=== PATIENT | female | born 1985 | race Two or more races ===

== ENCOUNTER 2016-08-27 20:38 | Emergency (ER) | payer OTHER ==
[~2016-08-27] VITALS: Ht 160 cm; Wt 58.1 kg
[2016-08-27] MEDS ORDERED: AMBI10TA PO (21:25)
[2016-08-27] MEDS ORDERED: ADDE10CA PO (21:25)
[2016-08-27] MEDS ORDERED: KLON0.5T PO (21:25)
[2016-08-27] MEDS ORDERED: SERO200T PO (21:25)
[2016-08-27 22:20] LABS: MEAN CORPUSCULAR HEMOGLOBIN 33.4 pg (27.0-33.0); MEAN CORPUSCULAR HGB CONC 32.6 g/dl (32.0-36.5); MEAN CORPUSCULAR VOLUME 102.6 fl (80.0-96.0); RED CELL DISTRIBUTION WIDTH 11.7 % (11.5-14.5); WHITE BLOOD COUNT 7.6 K/mm3 (4.0-10.0)
[2016-08-27 22:30] LABS: METHADONE URINE NEGATIVE (NEGATIVE)
[2016-08-27 22:36] LABS: CONTROL LINE HCG INT CTR LINE PRESENT
[2016-08-27 22:51] LABS: ANION GAP 7 MEQ/L (8-16); AST/SGOT 32 U/L (15-37); BLOOD UREA NITROGEN 8 MG/DL (7-18); CALCIUM LEVEL 8.1 MG/DL (8.5-10.1); CARBON DIOXIDE LEVEL 25 MEQ/L (21-32); CHLORIDE LEVEL 112 MEQ/L (98-107); CREATININE FOR GFR 0.85 MG/DL (0.55-1.02); GLOMERULAR FILTRATION RATE > 60.0 (>60); GLUCOSE, FASTING 104 MG/DL (70-105); POTASSIUM SERUM 3.8 MEQ/L (3.5-5.1); SODIUM LEVEL 144 MEQ/L (136-145)
[2016-08-27 22:52] LABS: ALBUMIN 4.1 GM/DL (3.2-5.2); ALBUMIN/GLOBULIN RATIO 1.21 (1.00-1.93); ALKALINE PHOSPHATASE 79 U/L (45-117); ALT/SGPT 39 U/L (12-78); BILIRUBIN,DIRECT < 0.1 MG/DL (0.0-0.2); BILIRUBIN,TOTAL 0.4 MG/DL (0.2-1.0); TOTAL PROTEIN 7.5 GM/DL (6.4-8.2)
[2016-08-28 10:05] VITALS: BP 108/67
== END 2016-08-28 10:09 | disposition home or self-care (01) ==
LOC: M ED 20:38
DX: F10.129 Alcohol abuse with intoxication, unspecified (principal); F41.9 Anxiety disorder, unspecified; F90.9 Attention-deficit hyperactivity disorder, unspecified type; F17.200 Nicotine dependence, unspecified, uncomplicated; F12.10 Cannabis abuse, uncomplicated
CPT/HCPCS: 36415; 80048; 80076; 80306; 84443; 84703; 85027; 99284; G0480